=== PATIENT | male | born 1990 | race Caucasian/White ===

== ENCOUNTER 2018-07-02 05:42 | Emergency (ER) | payer BC ==
--- NOTE | 2018-07-02 06:34 | ER Document Report ---
ED General - General Chief Complaint: Hand Swelling Stated Complaint: RING STUCK ON FINGER - HPI Notes: Patient is a 27-year-old male that presents to the emergency department for chief complaint of ring stuck on finger. Patient states yesterday he got bit on his ring finger by a fire ant. He did initially take his ring off but replaced it last night. When he woke up this morning he was unable to get the ring off. He states he is having pain from the insect bite that is minimal. He denies any direct trauma to the finger. He denies any numbness. Past Medical History: Negative Past Surgical History: Axillary mass removal Social History: Negative Family History: Reviewed and noncontributory for presenting illness Allergies: Reviewed, see documented allergy list. REVIEW OF SYSTEMS: CONSTITUTIONAL : No fever No chills No diaphoresis No recent illness EENT: No vision changes No congestion No sore throat CARDIOVASCULAR: No chest pain No palpitations RESPIRATORY: No shortness of breath No cough No difficulty breathing GASTROINTESTINAL: No abdominal pain No nausea No vomiting No diarrhea GENITOURINARY: No dysuria No hematuria No difficulty urinating MUSCULOSKELETAL: No back pain No leg pain No arm pain Finger pain SKIN: No rashes No lesions LYMPHATIC: No swollen, enlarged glands. NEUROLOGICAL: No lightheadedness No headache No weakness No paresthesias PSYCHIATRIC: No anxiety No depression PHYSICAL EXAMINATION: Vital signs reviewed, nursing noted reviewed. GENERAL: Well-appearing, well-nourished and in no acute distress. HEAD: Atraumatic, normocephalic. EYES: Eyes appear normal, extraocular movements intact, sclera anicteric, conjunctiva are normal. ENT: nares patent, oropharynx clear without exudates. Moist mucous membranes. NECK: Normal range of motion, supple without lymphadenopathy LUNGS: Breath sounds clear to auscultation bilaterally and equal. No wheezes rales or rhonchi. HEART: Regular rate and rhythm without murmurs ABDOMEN: Soft, nontender, normoactive bowel sounds. No rebound, guarding, or rigidity. No masses appreciated. EXTREMITIES: Nontender, good range of motion. Left fourth digit edema NEUROLOGICAL: No focal neurological deficits. Moves all extremities spontaneously Motor and sensory grossly intact on exam. PSYCH: Normal mood, normal affect. SKIN: Warm, Dry, normal turgor. Pinpoint lesion on the dorsal aspect of left ring finger consistent with insect bite with mild surrounding erythema and edema of the left fourth digit - Related Data Allergies/Adverse Reactions: No Known Allergies Allergy (Verified 07/02/18 06:10) Past Medical History - Social History Smoking Status: Never Smoker Chew tobacco use (# tins/day): No Frequency of alcohol use: None Drug Abuse: None Family History: Reviewed & Not Pertinent Patient has suicidal ideation: No Patient has homicidal ideation: No Renal/ Medical History: Denies: Hx Peritoneal Dialysis Review of Systems - Review of Systems Notes: Dictated Physical Exam - Vital signs Vitals: Pulse Resp BP Pulse Ox 78 20 132/80 H 100 07/02/18 05:48 07/02/18 05:48 07/02/18 05:48 07/02/18 05:48 - Notes Notes: Dictated Course - Re-evaluation Re-evalutation: 07/02/18 07:13 Vitals reviewed. Nursing notes reviewed. Patient's ring was removed, see attached procedure note. Patient discharged in stable condition - Vital Signs Vital signs: Temp Pulse Resp BP Pulse Ox 97.8 F 78 20 132/80 H 100 07/02/18 05:59 07/02/18 05:48 07/02/18 05:48 07/02/18 05:48 07/02/18 05:48 Procedures - Additional Procedures ring removal Time performed: 07:11 Notes: 07/02/18 07:12 Patient's finger was iced with compression dressing. Attempt at removal with lubrication was unsuccessful. Attempted removal with string technique was also unsuccessful. Patient's ring was removed using a dermal tool. There was no injury to patient's finger during the procedure. He tolerated it well with no complications. Discharge - Discharge Clinical Impression: Fire ant sting Qualifiers: Encounter type: initial encounter Injury intent: accidental or unintentional Qualified Code(s): T63.421A - Toxic effect of venom of ants, accidental ( unintentional), initial encounter Condition: Stable Disposition: HOME, SELF-CARE Additional Instructions: Please return to the emergency department if you have any worsening, or concern of your symptoms. Please return to the emergency department if you develop chest pain, difficulty breathing, severe abdominal pain, or ongoing vomiting. Please follow-up with your primary care physician in 2-3 days and any other recommended physicians. If prescribed, take all medications as directed. If you have any questions or concerns do not hesitate to return the emergency department for evaluation. []
[2018-07-02 07:20] VITALS: BP 122/69
== END 2018-07-02 07:20 | disposition home or self-care (01) ==
LOC: ER 05:42
DX: T63.421A Toxic effect of venom of ants, accidental (unintentional), initial encounter (principal); M79.89 Other specified soft tissue disorders; W49.04XA Ring or other jewelry causing external constriction, initial encounter
CPT/HCPCS: 99283